=== PATIENT | male | born 1955 | race Caucasian/White ===

== ENCOUNTER 2018-09-17 03:09 | Inpatient (IN) | payer OTHER ==
[~2018-09-17] VITALS: Ht 185.4 cm; Wt 111.0 kg
[2018-09-17] MEDS ORDERED: ONDANSETRON 2MG/ML, 2ML ONE ×2 (03:26→08:27)
--- NOTE | 2018-09-17 03:27 | NUR ---
PT BIB [facility] TO ED C/O DIZZINESS N/Vx2 HOURS. STATES "I WOKE UP OUT OF MY SLEEP SWIMMIN' THROUGH THE ROOM." PT DENIES ANY SX PRIOR TO EVENT. PT BP GROSSLY ELEVATED FOR [facility] OVER 200 SYSTOLIC. PT DENIES A LEON. STATES BLURRY VISION. MODERATE NYSTAGMUS NOTED UPON EXAM. "I HAVE UNDIAGNOSED HTN, BUT SIGIFREDO NEVER TAKEN ANYTHING FOR IT." PA AWARE OF PT. THIS RN ORDERED HTN MEDS FROM RX AT THIS TIME. ALL MONITORING ON PT. PT BP GROSSLY ELEVATED IN ED WELL. THIS RN TO MEDICATE AFTER PT BACK FROM CT.
[2018-09-17] MEDS ORDERED: ONDANSETRON 2MG/ML, 2ML IVPush ONE (03:30)
[2018-09-17] MEDS ORDERED: hydrALAzine 20 MG/ML, 1ML IV ONE ×2 (03:30→04:30)
[2018-09-17] MEDS ORDERED: SODIUM CHLORIDE FLUSH 10ML SYR IVF ONE (03:30)
[2018-09-17 03:36] LABS: BASOPHILS # (AUTO) 0.02 x10^3/uL (0-0.1); BASOPHILS % (AUTO) 0 % (0-1); EOSINOPHILS # (AUTO) 0.17 x10^3/uL (0-0.4); EOSINOPHILS % (AUTO) 3 % (1-7); LYMPHOCYTES # (AUTO) 1.23 x10^3/uL (1-3.4); LYMPHOCYTES % (AUTO) 23 % (22-44); MD NO; MEAN CORPUSCULAR HGB CONC 34.8 g/dL (33.2-36.2); MEAN PLATELET VOLUME 10.9 fL (7.4-10.4); MONOCYTES # (AUTO) 0.48 x10^3/uL (0.2-0.8); MONOCYTES % (AUTO) 9 % (2-9); NEUTROPHILS # (AUTO) 3.54 x10^3/uL (1.8-6.8); NEUTROPHILS % (AUTO) 65 % (42-75); PLATELET COUNT 164 x10^3/uL (130-400); RED BLOOD COUNT 4.91 x10^6/uL (4.38-5.82); RED CELL DISTRIBUTION WIDTH 13.2 % (9.4-14.8)
[2018-09-17 03:42] LABS: INTERNATIONAL NORMALIZED RATIO 1.02 (0.93-1.1); PROTHROMBIN TIME 10.7 Seconds (9.6-11.5)
[2018-09-17 03:44] LABS: ALANINE AMINOTRANSFERASE 35 U/L (12-78); ALBUMIN 4.1 g/dL (3.4-5.0); ANION GAP 6 mmol/L (5-15); CALCIUM 8.4 mg/dL (8.5-10.1); CHLORIDE 111 mmol/L (98-107); CREATININE 0.91 mg/dL (0.7-1.3)
[2018-09-17 03:49] LABS: ALKALINE PHOSPHATASE 58 U/L (45-117); BILIRUBIN,TOTAL 0.6 mg/dL (0.2-1.0); TROPONIN I < 0.015 ng/mL (0.000-0.045)
[2018-09-17] MEDS ORDERED: IBUP-1840 PO (04:00)
[2018-09-17] MEDS ORDERED: DIAZEPAM 5 MG/ML, 10ML VIAL IV ONE (04:00)
--- NOTE | 2018-09-17 04:19 | NUR ---
PT RESTED IN BED STATING "IM FEELING A LITTLE FUNNY." STATES FEELING DIZZY AND LIGHT HEADED W/ NAUSEA. MD AWARE. MEDICATED PER SEP. BP STILL HIGH, BUT TRENDING DOWN. ALL MONITORING STILL INTACT. GF AT BEDSIDE.
[2018-09-17] MEDS ORDERED: ONDANSETRON ODT 4 MG PO PRN (04:30)
[2018-09-17] MEDS ORDERED: POLYETHYLENE GLYCOL 17 GM PACKET PO PRN (04:30)
[2018-09-17] MEDS ORDERED: NITROGLYCERIN 0.4 MG BOTTLE (25 TABS) SL PRN (04:30)
[2018-09-17] MEDS ORDERED: BISACODYL 10 MG SUPP PR PRN (04:30)
[2018-09-17] MEDS ORDERED: DOCUSATE 100 MG CAPSULE PO PRN (04:30)
[2018-09-17] MEDS ORDERED: PROMETHAZINE 25 MG/ML, 1ML IM PRN (04:30)
[2018-09-17] MEDS ORDERED: OXYcodone IR 5MG TABLET PO PRN (04:30)
--- NOTE | 2018-09-17 04:34 | NUR ---
PT SAT MID 80'S, PUT ON 2L NC SAT HIGH 90'S.
[2018-09-17] MEDS ORDERED: HEPARIN 5,000 UNITS/ML, 1ML ONE (04:55)
[2018-09-17] MEDS ORDERED: ASPIRIN 325 MG TABLET EC ONE (04:55)
[2018-09-17] MEDS: HEPARIN 5,000 UNITS/ML, 1ML SQ SCH ×3 (05:17→19:51)
[2018-09-17] MEDS: SODIUM CHLORIDE 0.9% 1,000 ML IV SCH ×2 (05:17→15:00)
[2018-09-17] MEDS: ASPIRIN 325 MG TABLET EC PO SCH (05:18)
[2018-09-17 05:21] LABS: FREE T4 (FREE THYROXINE) 0.94 ng/dL (0.76-1.46); THYROID STIMULATING HORMONE 2.09 mIU/L (0.358-3.740)
[2018-09-17 05:33] LABS: HEMOGLOBIN A1C 5.2 % (4.2-6.3)
[2018-09-17] MEDS ORDERED: ENALAPRILAT 1.25 MG/ML, 2ML ONE (06:02)
[2018-09-17] MEDS: ENALAPRILAT 1.25 MG/ML, 2ML IVPush PRN ×3 (06:05→12:05)
--- NOTE | 2018-09-17 06:05 | NUR ---
PT BP STILL ELEVATED. GIVEN PRN 1.25 MG VASOTEC PER SEP. THIS RN TO RECHECK BP IN 15 MIN.
--- NOTE | 2018-09-17 06:14 | NUR ---
HOSPITAL BED ORDERED AT THIS TIME.
[2018-09-17 06:35] LABS: TROPONIN I < 0.015 ng/mL (0.000-0.045)
--- NOTE | 2018-09-17 06:55 | NUR ---
REPORT FROM BELGICA MACK.
--- NOTE | 2018-09-17 07:23 | NUR ---
PT IS RESTING IN BED, TALKING WITH STAFF, RESPIRATIONS EQUAL AND NON LABORED. NAD. PT IS CONNECTED TO THE MONITOR. CALL LIGHT WITHIN REACH.
--- NOTE | 2018-09-17 07:59 | NUR ---
PT OFF THE FLOOR TO RADIOLOGY.
--- NOTE | 2018-09-17 08:20 | NUR ---
BREAK RN: PT RETURNED TO ROOM.
[2018-09-17] MEDS: ONDANSETRON 2MG/ML, 2ML IVPush PRN ×2 (08:30→19:51)
--- NOTE | 2018-09-17 08:33 | NUR ---
PT PROVIDED WITH MEAL TRAY. PT DECLINES, "I'M STILL NAUSEATED AND DIZZY" PT MEDICATED FOR NAUSEA. SR PER MONITOR. IV INFUSING WITHOUT REDNESS/SWELLING. REPORT TO PRIMARY RN SCOTT.
--- NOTE | 2018-09-17 08:50 | NUR ---
PT IS RESTING IN BED, RESPIRATIONS EQUAL AND NON LABORED. NAD. PT IS CONNECTED TO THE MONITOR. CALL LIGHT WITHIN REACH.
--- NOTE | 2018-09-17 10:10 | NUR ---
PT IS RESTING IN BED, RESPIRATIONS EQUAL AND NON LABORED. NAD. PT IS CONNECTED TO THE MONITOR. CALL LIGHT WITHIN REACH. FAMILY MEMBER AT BEDSIDE.
--- NOTE | 2018-09-17 10:18 | NUR ---
REPORT GIVEN TO JAZMINE MACK.
[2018-09-17] MEDS: morphine SULFATE 10 MG/ML, 1ML IVPush PRN ×2 (11:41→19:51)
[2018-09-17 11:48] VITALS: BP 182/93
[2018-09-17 12:23] VITALS: BP 162/78
[2018-09-17 13:12] LABS: TROPONIN I < 0.015 ng/mL (0.000-0.045)
[2018-09-17] MEDS: MECLIZINE CHEWABLE 25 MG TAB PO PRN (14:58)
[2018-09-17 15:15] LABS: MICROSCOPIC NOT IND
[2018-09-17 15:19] LABS: CULTURE INDICATED? NO
[2018-09-17 16:00] VITALS: BP 159/78
[2018-09-17 17:54] LABS: CHOL/HDL RATIO 3.7; LDL/HDL RATIO 2.4 (0.5-3.0)
[2018-09-17 18:28] LABS: HEMOGLOBIN A1C 5.2 % (4.2-6.3)
[2018-09-17 19:40] VITALS: BP 167/77
[2018-09-17 20:14] VITALS: BP 162/77
[2018-09-18 04:06] VITALS: BP 156/75
[2018-09-18] MEDS: ASPIRIN 325 MG TABLET EC PO SCH (05:15)
[2018-09-18] MEDS: HEPARIN 5,000 UNITS/ML, 1ML SQ SCH ×3 (05:16→20:03)
[2018-09-18 05:25] LABS: BASOPHILS # (AUTO) 0.02 x10^3/uL (0-0.1); BASOPHILS % (AUTO) 0 % (0-1); EOSINOPHILS # (AUTO) 0.23 x10^3/uL (0-0.4); EOSINOPHILS % (AUTO) 3 % (1-7); LYMPHOCYTES # (AUTO) 1.26 x10^3/uL (1-3.4); LYMPHOCYTES % (AUTO) 16 % (22-44); MD NO; MEAN CORPUSCULAR HEMOGLOBIN 31.5 pg (27.5-34.5); MEAN CORPUSCULAR HGB CONC 34.2 g/dL (33.2-36.2); MEAN CORPUSCULAR VOLUME 92.3 fL (81-97); MEAN PLATELET VOLUME 11.1 fL (7.4-10.4); MONOCYTES # (AUTO) 0.49 x10^3/uL (0.2-0.8); MONOCYTES % (AUTO) 6 % (2-9); NEUTROPHILS # (AUTO) 5.93 x10^3/uL (1.8-6.8); NEUTROPHILS % (AUTO) 75 % (42-75); PLATELET COUNT 164 x10^3/uL (130-400); RED BLOOD COUNT 4.62 x10^6/uL (4.38-5.82); RED CELL DISTRIBUTION WIDTH 13.4 % (9.4-14.8)
[2018-09-18 05:32] LABS: ALBUMIN 3.6 g/dL (3.4-5.0); ANION GAP 4 mmol/L (5-15); CALCIUM 8.2 mg/dL (8.5-10.1); CHLORIDE 110 mmol/L (98-107)
[2018-09-18 05:38] LABS: ALANINE AMINOTRANSFERASE 29 U/L (12-78); ALKALINE PHOSPHATASE 46 U/L (45-117); BILIRUBIN,TOTAL 1.2 mg/dL (0.2-1.0); CHOL/HDL RATIO 4.1; CHOLESTEROL, TOTAL 142 mg/dL (140-239); CREATININE 0.86 mg/dL (0.7-1.3); HDL CHOL % 25 % (26-37); HDL CHOLESTEROL (DIRECT) 35 mg/dL (40-60); LDL CHOLESTEROL,CALCULATED 78 mg/dL (54-169); LDL/HDL RATIO 2.2 (0.5-3.0); TOTAL PROTEIN 6.3 g/dL (6.4-8.2); TRIGLYCERIDES 144 mg/dL (50-200); VLDL CHOLESTEROL 29 mg/dL (0-25)
[2018-09-18 07:06] VITALS: BP 166/80
[2018-09-18] MEDS: CALCIUM CARBONATE 500 MG TAB.CHEW PO PRN ×3 (07:26→20:04)
[2018-09-18] MEDS ORDERED: OMNIPAQUE 350 MG/ML, 100ML BOTTLE ONE (08:34)
[2018-09-18 13:37] VITALS: BP 162/78
[2018-09-18] MEDS: MECLIZINE CHEWABLE 25 MG TAB PO PRN (17:17)
[2018-09-18 19:44] VITALS: BP 203/104
[2018-09-18] MEDS ORDERED: DIPHENHYDRAMINE 50 MG CAPSULE ONE (19:53)
[2018-09-18] MEDS ORDERED: DIPHENHYDRAMINE 50 MG CAPSULE PO PRN (20:00)
[2018-09-18] MEDS: morphine SULFATE 10 MG/ML, 1ML IVPush PRN (20:02)
[2018-09-18] MEDS: hydrALAzine 20 MG/ML, 1ML IVPush PRN (20:03)
[2018-09-18 22:45] VITALS: BP 184/88
[2018-09-18] MEDS: ENALAPRILAT 1.25 MG/ML, 2ML IVPush PRN (22:52)
[2018-09-19] VITALS (10 sets, daily range): BP systolic 159–192; BP diastolic 82–96
[2018-09-19] MEDS: hydrALAzine 20 MG/ML, 1ML IVPush PRN ×2 (04:18→23:52)
[2018-09-19] MEDS: HEPARIN 5,000 UNITS/ML, 1ML SQ SCH ×3 (05:30→21:26)
[2018-09-19] MEDS: ASPIRIN 325 MG TABLET EC PO SCH (05:30)
[2018-09-19] MEDS: MECLIZINE CHEWABLE 25 MG TAB PO PRN (07:58)
[2018-09-19] MEDS: ENALAPRILAT 1.25 MG/ML, 2ML IVPush PRN ×3 (07:58→22:22)
[2018-09-19 08:57] LABS: ALANINE AMINOTRANSFERASE 33 U/L (12-78); ALBUMIN 3.7 g/dL (3.4-5.0); ANION GAP 5 mmol/L (5-15); CALCIUM 8.5 mg/dL (8.5-10.1); CHLORIDE 107 mmol/L (98-107); CREATININE 0.76 mg/dL (0.7-1.3)
[2018-09-19 09:00] LABS: ALKALINE PHOSPHATASE 44 U/L (45-117)
[2018-09-19] MEDS: morphine SULFATE 10 MG/ML, 1ML IVPush PRN (15:57)
[2018-09-19] MEDS ORDERED: SODIUM CHLORIDE NASAL SPRAY 45ML BOTTLE NAS PRN (16:30)
[2018-09-19] MEDS ORDERED: PSEUDOEPHEDRINE 30 MG TABLET PO PRN (16:30)
[2018-09-20] VITALS (11 sets, daily range): BP systolic 166–193; BP diastolic 72–95
[2018-09-20] MEDS: morphine SULFATE 10 MG/ML, 1ML IVPush PRN ×2 (05:01→13:34)
[2018-09-20] MEDS: ASPIRIN 325 MG TABLET EC PO SCH (05:43)
[2018-09-20] MEDS: HEPARIN 5,000 UNITS/ML, 1ML SQ SCH ×3 (05:43→21:08)
[2018-09-20] MEDS: ENALAPRILAT 1.25 MG/ML, 2ML IVPush PRN ×2 (05:57→20:29)
[2018-09-20] MEDS ORDERED: AMLODIPINE 5 MG TABLET ONE (08:31)
[2018-09-20] MEDS: LORATADINE 10 MG TABLET PO SCH (08:36)
[2018-09-20] MEDS: AMLODIPINE 5 MG TABLET PO SCH (08:36)
[2018-09-20] MEDS: hydrALAzine 20 MG/ML, 1ML IVPush PRN ×2 (11:08→23:15)
[2018-09-20] MEDS ORDERED: HYDROCHLOROTHIAZIDE 12.5 MG CAPSULE PO ONE (13:30)
[2018-09-20] MEDS ORDERED: LISINOPRIL 10 MG TABLET PO ONE (13:30)
[2018-09-20] MEDS: CALCIUM CARBONATE 500 MG TAB.CHEW PO PRN (21:08)
[2018-09-21 01:19] VITALS: BP 133/78
[2018-09-21 05:09] VITALS: BP 159/78
[2018-09-21] MEDS: HEPARIN 5,000 UNITS/ML, 1ML SQ SCH (06:00)
[2018-09-21] MEDS: ASPIRIN 325 MG TABLET EC PO SCH (06:40)
[2018-09-21 07:22] VITALS: BP 171/87
[2018-09-21 08:41] LABS: ALBUMIN 3.8 g/dL (3.4-5.0); ANION GAP 4 mmol/L (5-15); CALCIUM 8.9 mg/dL (8.5-10.1); CHLORIDE 102 mmol/L (98-107)
[2018-09-21] MEDS ORDERED: LISINOPRIL 10 MG TABLET PO SCH (09:00)
[2018-09-21 09:04] LABS: CREATININE 0.87 mg/dL (0.7-1.3)
[2018-09-21] MEDS: AMLODIPINE 5 MG TABLET PO SCH (09:25)
[2018-09-21] MEDS: LORATADINE 10 MG TABLET PO SCH (09:25)
[2018-09-21] MEDS ORDERED: LORA-247 PO (10:17)
[2018-09-21] MEDS ORDERED: MECL-85 PO (10:17)
[2018-09-21] MEDS ORDERED: HYDR12.517 PO (10:17)
[2018-09-21] MEDS ORDERED: PSEU30TA24 PO (10:17)
[2018-09-21] MEDS ORDERED: LISI-167 PO (10:17)
[2018-09-21] MEDS ORDERED: AMLO-150 PO (10:17)
[2018-09-21] MEDS ORDERED: ASPI81TA45 PO (10:17)
[2018-09-21] MEDS ORDERED: HYDROCHLOROTHIAZIDE 12.5 MG CAPSULE PO SCH (12:00)
== END 2018-09-21 11:20 | disposition home or self-care (01) | DRG 149 ==
LOC: ED 04:08 → EDIP 04:09 → 4EST 10:55 → DCLOUNGE 09-21 11:00
PROVIDERS: ADMIT Internal Medicine; ATTEND Internal Medicine
DX: H81.10 Benign paroxysmal vertigo, unspecified ear (principal); I10 Essential (primary) hypertension; E66.9 Obesity, unspecified; G89.29 Other chronic pain; I16.0 Hypertensive urgency; J30.9 Allergic rhinitis, unspecified; H53.8 Other visual disturbances; Z68.32 Body mass index [BMI] 32.0-32.9, adult; Z87.891 Personal history of nicotine dependence; Z90.49 Acquired absence of other specified parts of digestive tract; Z79.899 Other long term (current) drug therapy
CPT/HCPCS: 36415; 70450; 70496; 70498; 70551; 74022; 80053; 80061; 80069; 81003; 83036; 83690; 83735; 84439; 84443; 84484; 85025; 85610; 85730; 93005; 93306; 93880; 96374; 96375; G0378; J1644; J2405; J3360; Q0162; Q9967; J0360; J2270; J7030